=== PATIENT | female | born 1980 | race Native Hawaiian/Other Pacific Islander ===

== ENCOUNTER 2018-03-01 21:15 | Inpatient (IN) | payer OTHER ==
[2018-03-01 21:27] VITALS: BMI 23.0
[2018-03-01] MEDS ORDERED: Lactated Ringer's 1,000 ML IV STA (21:27)
[2018-03-01] MEDS ORDERED: Oxytocin 30 UNIT 30 UNITS/500 ML BAG IV ONE (22:01)
--- NOTE | 2018-03-01 22:03 | ED PDOC ---
HPI: Female Pain Time Seen by Provider: 03/01/18 21:27 Chief Complaint (Nursing): Female Genitourinary Chief Complaint (Provider): Female Genitourinary History Per: Patient, EMS History/Exam Limitations: no limitations Onset/Duration Of Symptoms: Hrs (x1) Current Symptoms Are (Timing): Still Present Additional Complaint(s): 38 y/o female with no significant PMHx with precipitous delivery of a full term baby boy. Patient reports of going into labor only one hour prior to delivery. Patient states previous delivery was a normal spontaneous vaginal delivery. Patient additionally reports of being GBS positive. [employer] located in [facility]. On arrival to the ED, mother actively delivering placenta. Cord clamped by EMS. Patient reporting of abdominal crampnig and contractions. Patient otherwise offering no complaints. History limited due to patient's clinical condition. PMD: unknown [employer]: In [facility] Past Medical History Reviewed: Historical Data, Nursing Documentation, Vital Signs Vital Signs: Last Vital Signs Temp 98.1 F 03/01/18 21:27 Pulse 96 H 03/01/18 21:27 Resp 18 03/01/18 21:27 BP 116/81 03/01/18 21:27 Pulse Ox 97 03/01/18 21:27 - Medical History PMH: No Chronic Diseases - Surgical History Surgical History: No Surg Hx - Family History Family History: States: Unknown Family Hx - Living Arrangements Living Arrangements: With Family - Home Medications Home Medications: Ambulatory Orders Medication Instructions Recorded RX: Benzocaine/Menthol PRISON 1 sprays TOP Q6 PRN aero 03/03/18 [Dermoplast] RX: Ibuprofen [Motrin Tab] 600 mg PO Q6 PRN #30 tab 03/03/18 RX: Witch Leydi [Tucks] 1 pad TP PRN PRN pad 03/03/18 - Allergies Allergies/Adverse Reactions: Allergies Allergy/AdvReac Type Severity Reaction Status Date / Time No Known Allergies Allergy Verified 03/01/18 21:27 Review of Systems Review Of Systems: ROS cannot be obtained secondary to pt's inabilty to answer questions. (in active labor) Physical Exam - Reviewed Nursing Documentation Reviewed: Yes Vital Signs Reviewed: Yes - Physical Exam Appears: Positive for: In Acute Distress (in active labor and acute painful dist ress) Head Exam: Positive for: ATRAUMATIC, NORMOCEPHALIC Skin: Positive for: Warm, Diaphoresis, Pallor Eye Exam: Positive for: EOMI, PERRL ENT: Positive for: Normal ENT Inspection Neck: Positive for: Painless ROM, Supple Cardiovascular/Chest: Positive for: Regular Rate, Rhythm. Negative for: Edema Respiratory: Negative for: Accessory Muscle Use, Respiratory Distress Gastrointestinal/Abdominal: Positive for: Tenderness. Negative for: Soft (Gravid (intermittently intense with contractions)), Mass, Distended Pelvic Exam: Positive for: Other (Visibly clamped cord at the vulvar opening. ) Back: Positive for: Normal Inspection. Negative for: Muscle Spasm Extremity: Positive for: Normal ROM. Negative for: Deformity Neurologic/Psych: Positive for: Alert. Negative for: Motor/Sensory Deficits - Laboratory Results Result Diagrams: 03/02/18 06:39 03/01/18 21:50 - ECG O2 Sat by Pulse Oximetry: 97 (RA) Pulse Ox Interpretation: Normal Medical Decision Making Medical Decision Making: Time: 2122 -- Cord was grabbed with large ring forceps and slight traction applied during contraction. Large placenta delivered without difficulty. Placenta appeared intact. Patient experienced minimal bleeding after delivery. Uterus contracted. Both the mother and the baby kept together in the same room during process. After placenta delivery, baby handed to mother. -- Machine Packager, Dr. Lopez called down for a consultation. Provider at bedside upon arrival of mother and patient. -- On-Call [employer], Dr. Saul called down for a consultation. -- Type and Screen -- CMP -- CBC with differentials -- PTT -- Prothrombin time -- Lactated Ringer's IV 1000 mls/hr -- Heplock Insertion -- Accucheck -- admit to Hospital Scribe Attestation: Documented by Angela Schrader, acting as a scribe for Christiana Hernandez MD. Provider Scribe Attestation: All medical record entries made by the Scribe were at my direction and personally dictated by me. I have reviewed the chart and agree that the record accurately reflects my personal performance of the history, physical exam, medical decision making, and the department course for this patient. I have also personally directed, reviewed, and agree with the discharge instructions and disposition. Disposition - Clinical Impression Clinical Impression: Precipitous delivery - Disposition Disposition Time: 22:00 Condition: STABLE - Pt Status Changed To: Hospital Disposition Of: Inpatient - Admit Certification Admit to Inpatient:: After my assessment, the patient will require ho spitalization for at least two midnights. This is because of the severity of symptoms shown, intensity of services needed, and/or the medical risk in this patient being treated as an outpatient. - POA Present On Arrival: None
[2018-03-01] MEDS ORDERED: OXYTOCIN/0.9 % NS 20 UNIT/1,000 ML BAG IV SCH (22:15)
[2018-03-01 22:18] LABS: INR 0.9
[2018-03-01] MEDS ORDERED: Lidocaine 1% Inj (20ml) ONE (22:19)
[2018-03-01 22:21] LABS: BASO % 0.1 % (0.0-2.0); EOS % 0.4 % (0.0-4.0); HEMOGLOBIN 12.8 g/dL (12.0-16.0); LYMPH # 1.1 K/uL (1.0-4.3); LYMPH % 14.9 % (20.0-40.0); MEAN CORPUSCULAR HEMOGLOBIN 32.3 pg (27.0-31.0); MEAN CORPUSCULAR HGB CONC 33.7 g/dL (33.0-37.0); MEAN PLATELET VOLUME 9.7 fl (7.2-11.7); MONO # 0.4 K/uL (0.0-0.8); MONO % 5.7 % (0.0-10.0); NEUT % 78.9 % (50.0-75.0); NRBC % 0.1 % (0.0-0.0); RBC 3.97 Mil/uL (3.80-5.20); RED CELL DISTRIBUTION WIDTH 13.5 % (11.5-14.5); WHITE BLOOD COUNT 7.6 K/uL (4.8-10.8)
[2018-03-01 22:25] LABS: ALB/GLOB RATIO 1.2 (1.0-2.1); ALBUMIN 3.4 g/dL (3.5-5.0); ALT/SGPT 27 U/L (9-52); AST/SGOT 27 U/L (14-36); BLOOD UREA NITROGEN 7 mg/dl (7-17); CALCIUM 8.7 mg/dL (8.4-10.2); GFR NON-AFRICAN AMERICAN > 60
[2018-03-01] MEDS ORDERED: Oxycodone/Acetaminophen 5/325 mg Tab PO PRN ×2 (23:01)
[2018-03-01] MEDS ORDERED: Benzocaine/Menthol SPRAY TOP PRN (23:01)
--- NOTE | 2018-03-01 23:02 | OBDS ---
MATERNAL INFORMATION Provider Comments: Pt delivered a viable male at home. Wt 3185gms, 7#3. [facility] and placenta was delivered in the ED. Pt was then brought up to L_D. 1% l idocaine was injected into vagina and perineum. Second degree tear was repaired w/ 2-0 rapide. There was a 3-4 cm hymenal remnant attached in 2 places to the vagina, one of which was attenuated and eas margareth excised w/ scissors, the other attachment was thick and part of the hymenal ring. The hymenal re mnant was tied off w/ 2-0v and excised w/ scissors. Hemostasis was noted. No complications.
--- NOTE | 2018-03-01 23:08 | OBADHP ---
Datetime: 03/01/2018 22:39 IP Chief Complaint Other: Home delivery IP Adm Impression Other: delivered Admit Comment, IP Provider: Pt is 38 yo 38.4wk With no pmh arrived to ER with baby in hand a fter she had a Normal vaginal delivery at home. Pt state that she had broked her water membrane at 8: 00 and baby was delivered at 8:30 by dad in the bathroom. When arrived placenta was still attached an d it was cut and delivered by a doctor in the ER. Otherwise patient had no complication, she denies a ny fall or trauma. Pt denies active bleeding. Otherwise patient have no complain. Pt from [facility] clinic Meds: None PMH None OBGYN: GBS+ PSH None FH: no past family history of any disease Social Denies smoke ETOH or drug use 22:50 Assessment and plan Pt is 38 yo 38.4wk With no pmh arrived to ER with baby in hand after she had a Normal vagi nal delivery at home. Admitted to L_D Pt is not in acute distress baby is WNL Vitals WNL Pelvic sec degree tear noted, will repair in L_D Pitocin for after placenta delivery Will send to OB post floor for further managment Discussed with Dr. Kg Loaiza PGY1 OB Hospitalist Addendum: Pt seen and examined by me. Agree w/ above. 38 yo s/p at h ome, brought to [place] by ambulance and placenta delivered in ED, now on L_D and second degree tear repaired. (ES) Pelvic Type - PN: Adequate Extremities - PN: Normal Abdomen - PN: Normal Back - PN: Normal Breast - PN: Not Done Lungs - PN: Normal Heart - PN: Normal Thyroid - PN: Normal Neurologic - PN: Normal HEENT - PN: Normal General - PN: Normal Comments, ACOG Physical Exam: Pt is not in acute distress heart S1/s2 no extra heartsound lung cleart effortless Abd mild tender to plaplation BS+ pelvic Sec degree tear noted Vital Signs Provider: Reviewed; Within Normal Limits Genitourinary Exam: Normal DTRs - PN: Normal IP Adm Impression: Term, intrauterine IP Admit Plan: Admit to unit
[2018-03-01 23:25] LABS: PROTHROMBIN TIME 9.7 Seconds (9.8-13.1)
[2018-03-02] MEDS ORDERED: Benzocaine/Menthol SPRAY TOP PRN (02:12)
[2018-03-02] MEDS ORDERED: Oxycodone/Acetaminophen 5/325 mg Tab PO PRN ×2 (02:12)
[2018-03-02 07:36] LABS: HEMOGLOBIN 11.3 g/dL (12.0-16.0); MEAN CORPUSCULAR HEMOGLOBIN 32.4 pg (27.0-31.0); MEAN CORPUSCULAR HGB CONC 33.7 g/dL (33.0-37.0); RBC 3.49 Mil/uL (3.80-5.20); RED CELL DISTRIBUTION WIDTH 13.6 % (11.5-14.5); WHITE BLOOD COUNT 9.9 K/uL (4.8-10.8)
--- NOTE | 2018-03-03 13:17 | OBPPN ---
Datetime: 03/03/2018 07:29 PP Pain Prov: Within normal limits PP Nausea Prov: Denies PP Flatus Prov: Yes PP BM Prov: No PP Comments Phys Exam Prov: see progress note PP Impression Prov: Normal progression PP Plan Prov: Discharge PP Progress Note Prov: S: 38 y/o female s/p at home on 03/01/18 on her PPD2. Pt was seen and examined at bedside this morning. No overnight events. Pt reports mild pelvic pain, that gest rel ief with pain med. She is ambulating w/o dizziness. Breast feeding w/o difficulties. Lochia is like menses in volume. +Flatus/-BM. Denies fever/chills, diarrhea, nausea/vomiting, chest pain, dyspnea, and dizziness. Pt desires circumcision for baby. VS: WNL GEN: NAD Cardio: RRR, S1 S2 normal, no murmurs Lungs: clear breath sounds b/l Abdomen: soft, no tenderness to palpation. Uterus is firm and at the level of the umbilicus. EXT: No edema, Madelyn's neg NEURO/PSYCH: AAOx3, preserved affect and mood. Assessment/Plan: 38 y/o female s/p on 03/01/18, doing well on PPD2. Pt remains afebrile , tolerating pain with medication. Tolerating diet. Anticipating d/c today. Encourage and ambulating Ibuprofen 400 Q6h PRN cristiane Abel MD PGY1 OB Hospitalist Addendum: Pt seen and examined by me. Agree w/ above. PPD 2 s/p delivery at home, doing well, breast and bottle feeding. Rx motrin given. Discharge home today. (ES) Vital Signs Provider PP: Reviewed; Within Normal Limits Datetime: 03/02/2018 05:49 PP Breasts Prov: Not Done PP Heart Prov: Normal PP Lungs Prov: Normal PP Abdomen/Uterus Prov: Normal PP Lochia Prov: Normal PP Vulva/Perineum Prov: Normal PP CVA Tenderness Prov: Normal PP Extremities Prov: Normal PP C/S Incision Prov: Not Applicable PP Progress Prov: Normal
--- NOTE | 2018-03-03 13:17 | OBDCSUM ---
Datetime: 03/03/2018 09:05 Discharged to, Provider: Home Follow up at, Provider: PMD Disch Instr Activity: Normal activity Disch Instr Diet: Regular Discharge Instructions, Provider: Routine instructions given Discharge Diagnosis, Provider: Term Delivered Discharge Time: 03/03/2018 12:00 Follow up in weeks, Provider: 4-6 weeks Disch Referrals: None Contraception discussed, Prov: No Disch Activity Restrictions: Minimize stair-climbing; No sexual activity; Nothing in vagina - Interc ourse, tampons, douche Discharge Comment, Provider: Diagnosis: 38 y/o s/p at home of a viable baby boy on 03/01/18 with EGA: 38.6 weeks at time of deliv [place]: Male, Wt. 3185 Post- D/C Summary: No OB complications. No complications during post- period. Lochia l marisol menses in volume. Pt able to pass gas, ambulate and pass urine. Tolerate regular diet, no ROW[place], CP, SOB, N/V, fever or other acute complaint at this time. Fundus firm below umbilicus level. Pt is hemo dynamically stable. H/H : 11.3/33.5 Discharge Instructions given to patient: Encourage PNV 1 tab PO daily May take Ibuprofen OTC 400mg Q 6h prn for mild-mod pain if needed ED precautions: If excessive bleeding, pain that does not get relief, fever >100.4, palpitations, SOB, CP or other concerning symptom go to the ED PT was urged if feeling sad, mood swing, depression, neglect of baby, suicidal thoughts, homicidal thoughts go to ER or call 911 for help Pt should go to her Primary care doctor if have difficulty with breast feeding F/U in 4-6 week for PP visit with you PMD. Aroldo Abel MD PGY1
[2018-03-03 20:53] VITALS: BP 95/52; PULSE 70; RESP 20; TEMP 98
[2018-03-03 21:16] VITALS: O2SAT 97
== END 2018-03-03 16:15 | disposition home or self-care (01) | DRG 807 ==
LOC: H.ER 21:15 → H.ERHOLD 21:33 → H.OB/GYN 03-02 00:45
PROVIDERS: ADMIT Obstetrics & Gynecology; ATTEND Obstetrics & Gynecology
PROC: 10E0XZZ Delivery of Products of Conception, External Approach (ICD-10-PCS; principal; 2018-03-01)
PROC: 0KQM0ZZ Repair Perineum Muscle, Open Approach (ICD-10-PCS; 2018-03-01)
PROC: 4A1HXCZ Monitoring of Products of Conception, Cardiac Rate, External Approach (ICD-10-PCS; 2018-03-01)
DX: O62.3 Precipitate labor (principal); Z37.0 Single live birth; O70.1 Second degree perineal laceration during delivery; O99.824 Streptococcus B carrier state complicating childbirth; Z3A.38 38 weeks gestation of pregnancy